=== PATIENT | male | born 1990 | race Caucasian/White ===

== ENCOUNTER 2018-04-14 14:39 | Emergency (ER) | payer OTHER ==
[~2018-04-14] VITALS: Ht 160 cm; Wt 74.8 kg
== END 2018-04-14 17:52 | disposition home or self-care (01) ==
LOC: ER 14:39
DX: J20.8 Acute bronchitis due to other specified organisms (principal); B34.9 Viral infection, unspecified

== ENCOUNTER 2019-01-20 15:45 | Emergency (ER) | payer OTHER ==
[~2019-01-20] VITALS: Ht 157.5 cm; Wt 86.2 kg
[2019-01-20] MEDS ORDERED: MUCINEX DM ER1 EAC1 PO (21:06)
[2019-01-20] MEDS ORDERED: BUDESONIDE0.5 MG/2 M IH (21:06)
[2019-01-20] MEDS ORDERED: IPRAT-ALBUT 0.5-3 ML IH (21:06)
[2019-01-20] MEDS ORDERED: TESSALON PERLE100 M1 PO (21:06)
== END 2019-01-20 21:33 | disposition home or self-care (01) ==
LOC: ER 15:45
DX: J06.9 Acute upper respiratory infection, unspecified (principal)

== ENCOUNTER 2020-05-08 13:04 | Emergency (ER) | payer OTHER ==
[~2020-05-08] VITALS: Ht 157.5 cm; Wt 89.8 kg
[~2020-05-08 13:04] MED LIST: BUDESONIDE0.5 MG/2 M IH; IPRAT-ALBUT 0.5-3 ML IH; MUCINEX DM ER1 EAC1 PO; TESSALON PERLE100 M1 PO
== END 2020-05-08 17:25 | disposition home or self-care (01) ==
LOC: ER 13:04 → EDBD 13:31 → ER 13:31
DX: R10.13 Epigastric pain (principal); K52.89 Other specified noninfective gastroenteritis and colitis

== ENCOUNTER 2020-06-29 18:02 | Emergency (ER) | payer OTHER ==
[~2020-06-29] VITALS: Ht 165.1 cm; Wt 88.5 kg
[2020-06-29] MEDS ORDERED: [UNRECOGNIZED DRUG - OTHER] (18:59)
[2020-06-29] MEDS ORDERED: [UNRECOGNIZED DRUG - OTHER] (19:01)
[2020-06-30] MEDS ORDERED: ALBUTEROL2.5 MG/3 M IH (08:24)
[2020-06-30] MEDS ORDERED: ZITHROMAX500 MG PO (08:24)
[2020-06-30] MEDS ORDERED: SYMBICORT 16010.2 GM IH (08:24)
[2020-06-30] MEDS ORDERED: ZYNCOF 20-400120 ML PO (08:24)
== END 2020-06-30 08:40 | disposition home or self-care (01) ==
LOC: ER 18:02
DX: J45.998 Other asthma (principal); Z03.818 Encounter for observation for suspected exposure to other biological agents ruled out